=== PATIENT | male | born 1990 | race Two or more races ===

== ENCOUNTER → 2016-10-26 | Outpatient (CLI) | payer MEDICAID | END | disposition home or self-care (01) | LOC: CVU 13:05 | PROVIDERS: ATTEND Specialist | DX: I51.7 Cardiomegaly (principal); I27.0 Primary pulmonary hypertension | CPT/HCPCS: 93005; 93306 ==

== ENCOUNTER 2016-12-15 09:09 | Day surgery (SDC) | payer MEDICAID ==
[2016-12-14 15:01] LABS: HEMATOCRIT 52.5 % (39.2-51.8); HEMOGLOBIN 17.2 g/dL (13.7-18.0); WHITE BLOOD COUNT 10.9 x10^3/uL (3.4-10)
[2016-12-14 15:10] LABS: BLOOD UREA NITROGEN 13 mg/dL (7-18)
[~2016-12-15] VITALS: Ht 167.6 cm; Wt 86.4 kg
[~2016-12-15 09:09] MED LIST: BENA1TAB8 PO; ERGO500017 PO; NIFE30TA13 PO
[2016-12-15] MEDS ORDERED: MIDAZOLAM 1 MG/ML, 5ML ONE (10:22)
[2016-12-15] MEDS ORDERED: FENTANYL PF 100 MCG/2ML ONE (10:22)
[2016-12-15] MEDS ORDERED: METO25TA2 PO (11:41)
== END 2016-12-15 12:45 | disposition home or self-care (01) ==
LOC: CACL 09:09
PROVIDERS: ATTEND Internal Medicine Cardiovascular Disease
DX: R06.02 Shortness of breath (principal); I10 Essential (primary) hypertension; H15.9 Unspecified disorder of sclera; J44.9 Chronic obstructive pulmonary disease, unspecified
CPT/HCPCS: 36415; 71020; 80048; 83880; 85025; 85610; 85730; 93451; 99156; 99157; C1894; J2250; J3010

== ENCOUNTER 2017-12-28 08:12 | Inpatient (IN) | payer MEDICAID ==
[~2017-12-28] VITALS: Ht 167.6 cm; Wt 83.0 kg
[~2017-12-28 08:12] MED LIST changes: +METO25TA2 PO
[2017-12-28] MEDS ORDERED: ONDANSETRON ODT 4 MG ONE (08:55)
[2017-12-28] MEDS ORDERED: MAALOX/HYOSCYAMINE/LIDOCAINE 45 ML BTL ONE (08:56)
[2017-12-28] MEDS ORDERED: FAMOTIDINE 20 MG/2 ML ONE (08:56)
[2017-12-28] MEDS ORDERED: MORPHINE SULFATE 4 MG/ML, 1ML ONE (08:56)
[2017-12-28] MEDS ORDERED: ONDANSETRON ODT 4 MG PO PRN ×4 (09:00→20:30)
[2017-12-28] MEDS ORDERED: MORPHINE SULFATE 4 MG/ML, 1ML IVPush PRN (09:00)
[2017-12-28] MEDS ORDERED: MAALOX/HYOSCYAMINE/LIDOCAINE 45 ML BTL PO ONE (09:00)
[2017-12-28] MEDS ORDERED: FAMOTIDINE 20 MG/2 ML IVP ONE (09:00)
[2017-12-28 09:06] LABS: BASOPHILS # (AUTO) 0.11 x10^3/uL (0-0.1); BASOPHILS % (AUTO) 1 % (0-1); EOSINOPHILS # (AUTO) 0.06 x10^3/uL (0-0.4); EOSINOPHILS % (AUTO) 0 % (1-7); LYMPHOCYTES # (AUTO) 1.06 x10^3/uL (1-3.4); LYMPHOCYTES % (AUTO) 6 % (22-44); MD NO; MEAN CORPUSCULAR HGB CONC 33.2 g/dL (33.2-36.2); MEAN CORPUSCULAR VOLUME 75.3 fL (81-97); MEAN PLATELET VOLUME 6.9 fL (7.4-10.4); MONOCYTES # (AUTO) 0.61 x10^3/uL (0.2-0.8); MONOCYTES % (AUTO) 4 % (2-9); NEUTROPHILS # (AUTO) 15.32 x10^3/uL (1.8-6.8); NEUTROPHILS % (AUTO) 89 % (42-75); PLATELET COUNT 400 x10^3/uL (130-400); RED BLOOD COUNT 6.43 x10^6/uL (4.38-5.82); RED CELL DISTRIBUTION WIDTH 15.1 % (9.4-14.8)
[2017-12-28 09:15] LABS: ANION GAP 8 mmol/L (5-15); CALCIUM 9.7 mg/dL (8.5-10.1); CHLORIDE 100 mmol/L (98-107)
[2017-12-28 09:19] LABS: ALANINE AMINOTRANSFERASE 31 U/L (12-78); ALKALINE PHOSPHATASE 86 U/L (45-117); BILIRUBIN,TOTAL 0.5 mg/dL (0.2-1.0); CREATININE 0.81 mg/dL (0.7-1.3); TOTAL PROTEIN 9.1 g/dL (6.4-8.2)
[2017-12-28] MEDS ORDERED: OMNIPAQUE 350 MG/ML, 100ML BOTTLE ONE (11:39)
[2017-12-28 14:06] VITALS: BP 125/81
[2017-12-28 14:27] VITALS: BP 125/81
[2017-12-28] MEDS ORDERED: BUPIVACAINE/PF-EPI 0.5% 1:200K ONE (16:35)
[2017-12-28] MEDS ORDERED: NEOSPORIN OINT, 15GM ONE (16:35)
[2017-12-28] MEDS ORDERED: GLYCOPYRROLATE 0.2MG/1ML, 5ML ONE (17:49)
[2017-12-28] MEDS ORDERED: DEXAMETHASONE 4 MG/ML, 1ML ONE (17:49)
[2017-12-28] MEDS ORDERED: ROCURONIUM 10 MG/ML,10ML ONE (17:49)
[2017-12-28] MEDS ORDERED: NEOSTIGMINE 1 MG/ML, 10ML ONE (17:49)
[2017-12-28] MEDS ORDERED: PROPOFOL 10 MG/ML, 20ML ONE (17:49)
[2017-12-28] MEDS ORDERED: SUCCINYLCHOLINE 20 MG/ML, 10ML ONE (17:49)
[2017-12-28] MEDS ORDERED: KETOROLAC 30 MG/1 ML ONE (17:49)
[2017-12-28] MEDS ORDERED: CEFAZOLIN 1,000 MG ONE (17:49)
[2017-12-28] MEDS ORDERED: LABETALOL 5MG/ML, 20ML IVPush PRN (18:00)
[2017-12-28] MEDS ORDERED: morphine SULFATE 10 MG/ML, 1ML IVPush PRN (18:00)
[2017-12-28] MEDS ORDERED: hydrALAzine 20 MG/ML, 1ML IVPush PRN (18:00)
[2017-12-28] MEDS ORDERED: ONDANSETRON 2MG/ML, 2ML IVPush PRN (18:00)
[2017-12-28] MEDS ORDERED: ONDANSETRON ODT 8 MG PO PRN (18:30)
[2017-12-28] MEDS ORDERED: OXYcodone 5 MG/5 ML ORAL.SOL UDC PO PRN (18:30)
[2017-12-28] MEDS ORDERED: METOPROLOL 1 MG/ML, 5ML IV PRN (18:30)
[2017-12-28] MEDS ORDERED: PROMETHAZINE 12.5 MG SUPP PR PRN (18:30)
[2017-12-28] MEDS ORDERED: HYDROmorphone 1 MG/ML, 1ML IV PRN (18:30)
[2017-12-28] MEDS ORDERED: ALBUTEROL/IPRATROPIUM 2.5MG/0.5MG, 3 ML NPPB PRN (18:30)
[2017-12-28] MEDS ORDERED: MIDAZOLAM 1 MG/ML, 2ML IV PRN (18:30)
[2017-12-28] MEDS ORDERED: FENTANYL PF 100 MCG/2ML IV PRN (18:30)
[2017-12-28] MEDS ORDERED: hydrALAzine 20 MG/ML, 1ML IV PRN (18:30)
[2017-12-28] MEDS ORDERED: MEPERIDINE/PF 25MG/0.5ML IVPush PRN (18:30)
[2017-12-28] MEDS ORDERED: ACETAMINOPHEN 325 MG TABLET PO PRN (18:30)
[2017-12-28] MEDS ORDERED: SCOPOLAMINE PATCH, 1.5MG PATCH.TD72 TD PRN (18:30)
[2017-12-28 18:52] LABS: HEMOGLOBIN A1C 5.7 % (4.2-6.3)
[2017-12-28] MEDS ORDERED: HYDROmorphone 2 MG/ML, 1ML ONE (19:32)
[2017-12-28] MEDS ORDERED: OXYcodone 5 MG/5 ML ORAL.SOL UDC ONE (19:32)
[2017-12-28 20:15] VITALS: BP 143/90
[2017-12-28] MEDS ORDERED: ONDANSETRON 2MG/ML, 2ML IV PRN (20:30)
[2017-12-28] MEDS ORDERED: MORPHINE SULFATE 4 MG/ML, 1ML IV PRN (20:30)
[2017-12-28 21:22] LABS: TROPONIN I < 0.015 ng/mL (0.000-0.045)
[2017-12-28] MEDS: METOPROLOL SUCCINATE 25 MG TAB.ER.24H PO SCH (22:52)
[2017-12-28] MEDS: niFEDipine ER 30 MG TABLET.ER PO SCH (22:52)
[2017-12-29 00:37] VITALS: BP 105/66
[2017-12-29 01:58] VITALS: BP 107/69
[2017-12-29 04:50] LABS: MEAN CORPUSCULAR HGB CONC 32.9 g/dL (33.2-36.2); MEAN CORPUSCULAR VOLUME 75.9 fL (81-97); PLATELET COUNT 396 x10^3/uL (130-400); RED CELL DISTRIBUTION WIDTH 14.8 % (9.4-14.8)
[2017-12-29 05:00] LABS: ALANINE AMINOTRANSFERASE 28 U/L (12-78); ALBUMIN 3.2 g/dL (3.4-5.0); ANION GAP 10 mmol/L (5-15); CALCIUM 8.5 mg/dL (8.5-10.1); CHLORIDE 100 mmol/L (98-107); CHOLESTEROL, TOTAL 114 mg/dL (140-239); CREATININE 0.98 mg/dL (0.7-1.3); TRIGLYCERIDES 125 mg/dL (50-200); VLDL CHOLESTEROL 25 mg/dL (0-25)
[2017-12-29 05:10] LABS: ALKALINE PHOSPHATASE 77 U/L (45-117); BILIRUBIN,TOTAL 0.9 mg/dL (0.2-1.0); CHOL/HDL RATIO 3.8; HDL CHOL % 26 % (26-37); HDL CHOLESTEROL (DIRECT) 30 mg/dL (40-60); LDL CHOLESTEROL,CALCULATED 59 mg/dL (54-169); THYROID STIMULATING HORMONE 0.368 mIU/L (0.358-3.740); TOTAL PROTEIN 8.2 g/dL (6.4-8.2)
[2017-12-29 05:49] LABS: BASOPHILS # (AUTO) 0.07 x10^3/uL (0-0.1); BASOPHILS % (AUTO) 0 % (0-1); EOSINOPHILS % (AUTO) 0 % (1-7); LYMPHOCYTES # (AUTO) 0.94 x10^3/uL (1-3.4); LYMPHOCYTES % (AUTO) 5 % (22-44); MD SCAN; MONOCYTES # (AUTO) 1.34 x10^3/uL (0.2-0.8); MONOCYTES % (AUTO) 6 % (2-9); NEUTROPHILS # (AUTO) 18.87 x10^3/uL (1.8-6.8); NEUTROPHILS % (AUTO) 89 % (42-75)
[2017-12-29] MEDS: HYDROCHLOROTHIAZIDE HOMEMEDPO SCH (08:14)
[2017-12-29] MEDS: BENAZEPRIL HOMEMEDPO SCH (08:14)
[2017-12-29] MEDS: niFEDipine ER 30 MG TABLET.ER PO SCH ×2 (08:14→20:28)
[2017-12-29] MEDS: [UNRECOGNIZED DRUG - OTHER] HOMEMEDPO SCH (08:14)
[2017-12-29 08:21] VITALS: BP 104/67
[2017-12-29] MEDS: OXYcodone/APAP 5/325MG TABLET PO PRN (08:23)
[2017-12-29 12:25] VITALS: BP 100/65
[2017-12-29 19:23] VITALS: BP 105/68
[2017-12-29 20:25] VITALS: BP 121/76
[2017-12-29] MEDS: METOPROLOL SUCCINATE 25 MG TAB.ER.24H PO SCH (20:28)
[2017-12-30] VITALS (8 sets, daily range): BP systolic 95–127; BP diastolic 58–79
[2017-12-30 04:51] LABS: MEAN CORPUSCULAR HEMOGLOBIN 25.4 pg (27.5-34.5); MEAN CORPUSCULAR HGB CONC 32.9 g/dL (33.2-36.2); MEAN CORPUSCULAR VOLUME 77.2 fL (81-97); MEAN PLATELET VOLUME 7.3 fL (7.4-10.4); PLATELET COUNT 385 x10^3/uL (130-400); RED BLOOD COUNT 5.54 x10^6/uL (4.38-5.82); RED CELL DISTRIBUTION WIDTH 15.4 % (9.4-14.8)
[2017-12-30 05:05] LABS: CHLORIDE 103 mmol/L (98-107)
[2017-12-30 05:18] LABS: ANION GAP 9 mmol/L (5-15); CALCIUM 8.5 mg/dL (8.5-10.1); CREATININE 0.81 mg/dL (0.7-1.3)
[2017-12-30 05:41] LABS: BASOPHILS % (AUTO) 0 % (0-1); EOSINOPHILS # (AUTO) 0.12 x10^3/uL (0-0.4); EOSINOPHILS % (AUTO) 1 % (1-7); LYMPHOCYTES % (AUTO) 16 % (22-44); MONOCYTES # (AUTO) 1.87 x10^3/uL (0.2-0.8); MONOCYTES % (AUTO) 12 % (2-9); NEUTROPHILS # (AUTO) 11.54 x10^3/uL (1.8-6.8); NEUTROPHILS % (AUTO) 72 % (42-75)
[2017-12-30 05:42] LABS: BASOPHILS # (AUTO) 0.06 x10^3/uL (0-0.1); MD SCAN
[2017-12-30 05:55] LABS: MICROSCOPIC AUTO
[2017-12-30 05:56] LABS: CULTURE INDICATED? NO
[2017-12-30] MEDS: niFEDipine ER 30 MG TABLET.ER PO SCH ×2 (08:13→21:38)
[2017-12-30] MEDS: HYDROCHLOROTHIAZIDE HOMEMEDPO SCH (08:15)
[2017-12-30] MEDS: [UNRECOGNIZED DRUG - OTHER] HOMEMEDPO SCH (08:15)
[2017-12-30] MEDS: BENAZEPRIL HOMEMEDPO SCH (08:15)
[2017-12-30] MEDS ORDERED: SODIUM CHLORIDE 0.9% 1,000ML IVBOLUS ONE (14:00)
[2017-12-30] MEDS: OXYcodone/APAP 5/325MG TABLET PO PRN ×2 (16:22→21:41)
[2017-12-30] MEDS: METOPROLOL SUCCINATE 25 MG TAB.ER.24H PO SCH (19:57)
[2017-12-31 01:38] VITALS: BP 97/59
[2017-12-31 06:01] VITALS: BP 108/68
[2017-12-31] MEDS: METOPROLOL SUCCINATE 25 MG TAB.ER.24H PO SCH (06:02)
[2017-12-31 07:26] VITALS: BP 95/63
[2017-12-31] MEDS: niFEDipine ER 30 MG TABLET.ER PO SCH ×2 (08:28→20:04)
[2017-12-31] MEDS: BENAZEPRIL 5 MG TABLET PO SCH (08:28)
[2017-12-31 09:44] LABS: BASOPHILS # (AUTO) 0.08 x10^3/uL (0-0.1); BASOPHILS % (AUTO) 1 % (0-1); EOSINOPHILS # (AUTO) 0.22 x10^3/uL (0-0.4); EOSINOPHILS % (AUTO) 1 % (1-7); LYMPHOCYTES # (AUTO) 1.99 x10^3/uL (1-3.4); LYMPHOCYTES % (AUTO) 13 % (22-44); MD NO; MEAN CORPUSCULAR HEMOGLOBIN 25.1 pg (27.5-34.5); MEAN CORPUSCULAR HGB CONC 32.4 g/dL (33.2-36.2); MEAN CORPUSCULAR VOLUME 77.4 fL (81-97); MEAN PLATELET VOLUME 7.1 fL (7.4-10.4); MONOCYTES # (AUTO) 0.59 x10^3/uL (0.2-0.8); MONOCYTES % (AUTO) 4 % (2-9); NEUTROPHILS % (AUTO) 81 % (42-75); PLATELET COUNT 407 x10^3/uL (130-400); RED BLOOD COUNT 5.87 x10^6/uL (4.38-5.82); RED CELL DISTRIBUTION WIDTH 15.4 % (9.4-14.8)
[2017-12-31] MEDS: ACETAMINOPHEN 325 MG TABLET PO PRN ×2 (11:30→16:28)
[2017-12-31 14:32] VITALS: BP 111/73
[2017-12-31 21:06] VITALS: BP 116/79
[2018-01-01 02:20] VITALS: BP 110/72
[2018-01-01] MEDS: METOPROLOL SUCCINATE 25 MG TAB.ER.24H PO SCH (06:18)
[2018-01-01 07:27] VITALS: BP 105/72
[2018-01-01] MEDS: BENAZEPRIL 5 MG TABLET PO SCH (08:01)
[2018-01-01] MEDS: niFEDipine ER 30 MG TABLET.ER PO SCH (08:01)
[2018-01-01] MEDS ORDERED: METOPROLOL SUCCINATE 25 MG TAB.ER.24H PO ONE (08:30)
[2018-01-01 11:09] VITALS: BP 126/70
[2018-01-01] MEDS ORDERED: METO50TA4 PO (12:24)
[2018-01-01] MEDS ORDERED: BENA5TAB3 PO (12:24)
[2018-01-01 13:10] VITALS: BP 123/87
== END 2018-01-01 15:03 | disposition home or self-care (01) | DRG 711 ==
LOC: ED 09:15 → EDIP 12:31 → 3NW 13:18 → DCLOUNGE 01-01 14:50
PROVIDERS: ADMIT Internal Medicine; ATTEND Internal Medicine
PROC: 0VT90ZZ Resection of Right Testis, Open Approach (ICD-10-PCS; principal; 2017-12-28 17:30)
DX: C62.91 Malignant neoplasm of right testis, unspecified whether descended or undescended (principal); E87.1 Hypo-osmolality and hyponatremia; I10 Essential (primary) hypertension; K76.0 Fatty (change of) liver, not elsewhere classified; K80.20 Calculus of gallbladder without cholecystitis without obstruction; M34.9 Systemic sclerosis, unspecified; R91.1 Solitary pulmonary nodule; N44.8 Other noninflammatory disorders of the testis; F32.9 Major depressive disorder, single episode, unspecified; R33.9 Retention of urine, unspecified; R00.0 Tachycardia, unspecified; D72.829 Elevated white blood cell count, unspecified
CPT/HCPCS: 36415; 99285; J3490; S0028; 71260; 74177; 76700; 80053; 80061; 80069; 81001; 82105; 83036; 83605; 83615; 83690; 83735; 84443; 84484; 84702; 85025; 85379; 87040; 88309; 88341; 88342; 93005; 93306; 96374; G0378; J0690; J1100; J1170; J1885; J2704; J2710; Q0162; Q9967; G0461; J0330; J7030

== ENCOUNTER 2018-01-05 05:08 | Emergency (ER) | payer MEDICAID ==
[~2018-01-05] VITALS: Ht 167.6 cm; Wt 81.6 kg
[~2018-01-05 05:08] MED LIST changes: +BENA5TAB3 PO; +METO50TA4 PO
[2018-01-05] MEDS ORDERED: FAMOTIDINE 20 MG/2 ML IVP ONE (05:30)
[2018-01-05] MEDS ORDERED: SODIUM CHLORIDE 0.9% 1,000ML IVBOLUS ONE (05:30)
[2018-01-05] MEDS ORDERED: SODIUM CHLORIDE FLUSH 10ML SYR IVF ONE (05:30)
[2018-01-05] MEDS ORDERED: FAMOTIDINE 20 MG/2 ML ONE (05:31)
[2018-01-05] MEDS ORDERED: MORPHINE SULFATE 4 MG/ML, 1ML ONE ×2 (05:31→06:36)
[2018-01-05] MEDS: MORPHINE SULFATE 4 MG/ML, 1ML IVPush PRN ×2 (05:42→06:39)
[2018-01-05 05:50] LABS: BASOPHILS # (AUTO) 0.09 x10^3/uL (0-0.1); BASOPHILS % (AUTO) 1 % (0-1); EOSINOPHILS # (AUTO) 0.22 x10^3/uL (0-0.4); EOSINOPHILS % (AUTO) 1 % (1-7); LYMPHOCYTES # (AUTO) 2.32 x10^3/uL (1-3.4); LYMPHOCYTES % (AUTO) 14 % (22-44); MD NO; MEAN CORPUSCULAR HEMOGLOBIN 25.2 pg (27.5-34.5); MEAN CORPUSCULAR HGB CONC 32.8 g/dL (33.2-36.2); MEAN CORPUSCULAR VOLUME 76.8 fL (81-97); MEAN PLATELET VOLUME 6.5 fL (7.4-10.4); MONOCYTES # (AUTO) 1.34 x10^3/uL (0.2-0.8); MONOCYTES % (AUTO) 8 % (2-9); NEUTROPHILS # (AUTO) 12.95 x10^3/uL (1.8-6.8); NEUTROPHILS % (AUTO) 77 % (42-75); PLATELET COUNT 562 x10^3/uL (130-400); RED BLOOD COUNT 5.63 x10^6/uL (4.38-5.82); RED CELL DISTRIBUTION WIDTH 15.2 % (9.4-14.8)
[2018-01-05 05:59] LABS: ALANINE AMINOTRANSFERASE 36 U/L (12-78); ALBUMIN 3.3 g/dL (3.4-5.0); ANION GAP 13 mmol/L (5-15); CALCIUM 9.4 mg/dL (8.5-10.1); CHLORIDE 102 mmol/L (98-107); CREATININE 0.85 mg/dL (0.7-1.3)
[2018-01-05 06:01] LABS: ALKALINE PHOSPHATASE 105 U/L (45-117); BILIRUBIN,TOTAL 0.5 mg/dL (0.2-1.0); TOTAL PROTEIN 8.8 g/dL (6.4-8.2)
[2018-01-05 08:50] VITALS: BP 121/76
== END 2018-01-05 08:54 | disposition home or self-care (01) ==
LOC: ED 06:17
DX: R10.84 Generalized abdominal pain (principal); Z88.5 Allergy status to narcotic agent
CPT/HCPCS: 36415; 76700; 80053; 83690; 85025; 96361; 96374; 96375; 96376; 99285; J7030; S0028

== ENCOUNTER 2018-01-16 16:32 | Inpatient (IN) | payer MEDICAID ==
[~2018-01-16] VITALS: Ht 167.6 cm; Wt 79.6 kg
[2018-01-16 18:07] LABS: BASOPHILS # (AUTO) 0.04 x10^3/uL (0-0.1); BASOPHILS % (AUTO) 0 % (0-1); EOSINOPHILS # (AUTO) 0.21 x10^3/uL (0-0.4); EOSINOPHILS % (AUTO) 2 % (1-7); LYMPHOCYTES # (AUTO) 2.41 x10^3/uL (1-3.4); LYMPHOCYTES % (AUTO) 17 % (22-44); MD NO; MEAN CORPUSCULAR HEMOGLOBIN 25.2 pg (27.5-34.5); MEAN CORPUSCULAR HGB CONC 33.2 g/dL (33.2-36.2); MEAN CORPUSCULAR VOLUME 75.8 fL (81-97); MEAN PLATELET VOLUME 7.1 fL (7.4-10.4); MONOCYTES # (AUTO) 1.11 x10^3/uL (0.2-0.8); MONOCYTES % (AUTO) 8 % (2-9); NEUTROPHILS # (AUTO) 10.64 x10^3/uL (1.8-6.8); NEUTROPHILS % (AUTO) 74 % (42-75); PLATELET COUNT 459 x10^3/uL (130-400); RED BLOOD COUNT 5.84 x10^6/uL (4.38-5.82); RED CELL DISTRIBUTION WIDTH 14.7 % (9.4-14.8)
[2018-01-16 18:20] LABS: ALANINE AMINOTRANSFERASE 40 U/L (12-78); ALBUMIN 3.6 g/dL (3.4-5.0); ANION GAP 6 mmol/L (5-15); CALCIUM 9.2 mg/dL (8.5-10.1); CHLORIDE 104 mmol/L (98-107)
[2018-01-16 18:23] LABS: ALKALINE PHOSPHATASE 103 U/L (45-117); BILIRUBIN,TOTAL 0.4 mg/dL (0.2-1.0); TOTAL PROTEIN 8.7 g/dL (6.4-8.2)
[2018-01-16] MEDS ORDERED: HYDR-3241 PO (18:29)
[2018-01-16] MEDS ORDERED: DICYCLOMINE 10 MG CAPSULE ONE (20:08)
[2018-01-16] MEDS ORDERED: ONDANSETRON ODT 4 MG ONE (20:08)
[2018-01-16 20:27] LABS: MICROSCOPIC AUTO
[2018-01-16 20:32] LABS: CULTURE INDICATED? NO
[2018-01-16] MEDS ORDERED: CEFOTETAN PMX 2GM/50ML 50 ML IV ONE (22:00)
[2018-01-16 23:52] VITALS: BP 116/76
[2018-01-17] VITALS (7 sets, daily range): BP systolic 89–149; BP diastolic 57–82
[2018-01-17] MEDS ORDERED: hydrALAzine 20 MG/ML, 1ML IVPush PRN
[2018-01-17] MEDS ORDERED: POLYETHYLENE GLYCOL 17 GM PACKET PO PRN
[2018-01-17] MEDS ORDERED: BISACODYL 10 MG SUPP PR PRN
[2018-01-17] MEDS ORDERED: DOCUSATE 100 MG CAPSULE PO PRN
[2018-01-17] MEDS ORDERED: ONDANSETRON ODT 4 MG PO PRN
[2018-01-17] MEDS ORDERED: ACETAMINOPHEN 325 MG TABLET PO PRN
[2018-01-17] MEDS ORDERED: HYDROcodone/APAP 5/325 TABLET PO PRN
[2018-01-17] MEDS ORDERED: LABETALOL 5MG/ML, 20ML IVPush PRN
[2018-01-17] MEDS ORDERED: PROMETHAZINE 25 MG/ML, 1ML IM PRN
[2018-01-17] MEDS ORDERED: ERGOCALCIFEROL 50,000 UNIT CAPSULE PO SCH
[2018-01-17] MEDS: SODIUM CHLORIDE 0.9% 1,000 ML IV SCH ×2 (00:11→10:17)
[2018-01-17] MEDS: PIPERACILLIN/TAZO/PMX 3.375GM 50 ML IV SCH ×4 (00:15→17:57)
[2018-01-17] MEDS: niFEDipine ER 30 MG TABLET.ER PO SCH ×3 (00:35→21:00)
[2018-01-17 01:01] LABS: FREE T4 (FREE THYROXINE) 1.55 ng/dL (0.76-1.46); THYROID STIMULATING HORMONE 4.7 mIU/L (0.358-3.740)
[2018-01-17 01:25] LABS: HEMOGLOBIN A1C 5.9 % (4.2-6.3)
[2018-01-17 04:57] LABS: BASOPHILS # (AUTO) 0.09 x10^3/uL (0-0.1); BASOPHILS % (AUTO) 1 % (0-1); EOSINOPHILS # (AUTO) 0.18 x10^3/uL (0-0.4); EOSINOPHILS % (AUTO) 2 % (1-7); LYMPHOCYTES # (AUTO) 2.29 x10^3/uL (1-3.4); LYMPHOCYTES % (AUTO) 18 % (22-44); MD NO; MEAN CORPUSCULAR HEMOGLOBIN 24.7 pg (27.5-34.5); MEAN CORPUSCULAR HGB CONC 32.8 g/dL (33.2-36.2); MEAN CORPUSCULAR VOLUME 75.2 fL (81-97); MEAN PLATELET VOLUME 7.4 fL (7.4-10.4); MONOCYTES # (AUTO) 1.42 x10^3/uL (0.2-0.8); MONOCYTES % (AUTO) 11 % (2-9); NEUTROPHILS # (AUTO) 8.66 x10^3/uL (1.8-6.8); NEUTROPHILS % (AUTO) 69 % (42-75); PLATELET COUNT 399 x10^3/uL (130-400); RED BLOOD COUNT 5.52 x10^6/uL (4.38-5.82); RED CELL DISTRIBUTION WIDTH 14.6 % (9.4-14.8)
[2018-01-17 05:11] LABS: CHLORIDE 104 mmol/L (98-107)
[2018-01-17 05:23] LABS: ALANINE AMINOTRANSFERASE 34 U/L (12-78); ALBUMIN 3.4 g/dL (3.4-5.0); ALKALINE PHOSPHATASE 84 U/L (45-117); ANION GAP 8 mmol/L (5-15); BILIRUBIN,TOTAL 0.6 mg/dL (0.2-1.0); CALCIUM 8.5 mg/dL (8.5-10.1); CHOL/HDL RATIO 3.8; CHOLESTEROL, TOTAL 123 mg/dL (140-239); CREATININE 0.96 mg/dL (0.7-1.3); HDL CHOL % 26 % (26-37); HDL CHOLESTEROL (DIRECT) 32 mg/dL (40-60); LDL CHOLESTEROL,CALCULATED 43 mg/dL (54-169); LDL/HDL RATIO 1.3 (0.5-3.0); TOTAL PROTEIN 7.9 g/dL (6.4-8.2); TRIGLYCERIDES 241 mg/dL (50-200); VLDL CHOLESTEROL 48 mg/dL (0-25)
[2018-01-17] MEDS: BENAZEPRIL 5 MG TABLET PO SCH (09:07)
[2018-01-17] MEDS: METOPROLOL SUCCINATE 50 MG TAB.ER.24H PO SCH (09:07)
[2018-01-17] MEDS ORDERED: BUPIVACAINE/PF-EPI 0.5% 1:200K ONE (14:06)
[2018-01-17] MEDS ORDERED: NEOSPORIN OINT, 15GM ONE (14:07)
[2018-01-17] MEDS ORDERED: FENTANYL PF 100 MCG/2ML ONE ×2 (14:12→16:00)
[2018-01-17] MEDS ORDERED: MIDAZOLAM 1 MG/ML, 2ML ONE (14:12)
[2018-01-17] MEDS ORDERED: BACITRACIN 50,000 UNIT ONE (14:52)
[2018-01-17] MEDS ORDERED: PROPOFOL 10 MG/ML, 20ML ONE (14:58)
[2018-01-17] MEDS ORDERED: OXYcodone 5 MG/5 ML ORAL.SOL UDC ONE (16:00)
[2018-01-17] MEDS: FENTANYL PF 100 MCG/2ML IV PRN ×2 (16:05→16:10)
[2018-01-17] MEDS ORDERED: MEPERIDINE/PF 50 MG/ML ONE (16:08)
[2018-01-17] MEDS ORDERED: LABETALOL 5MG/ML, 20ML IV PRN (16:30)
[2018-01-17] MEDS ORDERED: PROMETHAZINE 25 MG/ML, 1ML IV PRN (16:30)
[2018-01-17] MEDS ORDERED: KETOROLAC 30 MG/1 ML IV PRN (16:30)
[2018-01-17] MEDS ORDERED: MEPERIDINE/PF 25MG/0.5ML IVPush PRN (16:30)
[2018-01-17] MEDS ORDERED: OXYcodone 5 MG/5 ML ORAL.SOL UDC PO PRN (16:30)
[2018-01-17] MEDS ORDERED: hydrALAzine 20 MG/ML, 1ML IV PRN (16:30)
[2018-01-17] MEDS ORDERED: HYDROmorphone 2 MG/ML, 1ML IV PRN (16:30)
[2018-01-17] MEDS ORDERED: METOCLOPRAMIDE 5 MG/ML, 2ML IV PRN (16:30)
[2018-01-17] MEDS ORDERED: ALBUTEROL SULFATE 2.5 MG/3 ML NPPB PRN (16:30)
[2018-01-17] MEDS ORDERED: ONDANSETRON 2MG/ML, 2ML IVPush PRN ×2 (16:30)
[2018-01-17] MEDS: morphine SULFATE 10 MG/ML, 1ML IVPush PRN (17:34)
[2018-01-18] MEDS: PIPERACILLIN/TAZO/PMX 3.375GM 50 ML IV SCH ×5 (00:03→23:43)
[2018-01-18 00:34] VITALS: BP 93/58
[2018-01-18 03:25] VITALS: BP 97/64
[2018-01-18 04:37] LABS: BASOPHILS # (AUTO) 0.09 x10^3/uL (0-0.1); BASOPHILS % (AUTO) 1 % (0-1); EOSINOPHILS # (AUTO) 0.27 x10^3/uL (0-0.4); EOSINOPHILS % (AUTO) 3 % (1-7); LYMPHOCYTES # (AUTO) 2.44 x10^3/uL (1-3.4); LYMPHOCYTES % (AUTO) 25 % (22-44); MD NO; MEAN CORPUSCULAR HEMOGLOBIN 24.5 pg (27.5-34.5); MEAN CORPUSCULAR HGB CONC 32.5 g/dL (33.2-36.2); MEAN CORPUSCULAR VOLUME 75.5 fL (81-97); MEAN PLATELET VOLUME 7.2 fL (7.4-10.4); MONOCYTES % (AUTO) 11 % (2-9); NEUTROPHILS # (AUTO) 5.99 x10^3/uL (1.8-6.8); NEUTROPHILS % (AUTO) 61 % (42-75); PLATELET COUNT 384 x10^3/uL (130-400); RED BLOOD COUNT 5.19 x10^6/uL (4.38-5.82); RED CELL DISTRIBUTION WIDTH 15.3 % (9.4-14.8)
[2018-01-18 04:47] LABS: ALBUMIN 3.2 g/dL (3.4-5.0); ANION GAP 6 mmol/L (5-15); CHLORIDE 105 mmol/L (98-107); CREATININE 0.77 mg/dL (0.7-1.3)
[2018-01-18 06:35] VITALS: BP 93/59
[2018-01-18] MEDS: METOPROLOL SUCCINATE 50 MG TAB.ER.24H PO SCH (07:45)
[2018-01-18] MEDS: BENAZEPRIL 5 MG TABLET PO SCH (08:43)
[2018-01-18] MEDS: niFEDipine ER 30 MG TABLET.ER PO SCH ×2 (08:43→21:00)
[2018-01-18] MEDS: morphine SULFATE 10 MG/ML, 1ML IVPush PRN ×2 (12:03→23:43)
[2018-01-18 13:12] VITALS: BP 103/66
[2018-01-18 18:41] VITALS: BP 113/69
[2018-01-19 04:15] VITALS: BP 109/71
[2018-01-19 05:27] LABS: ALBUMIN 3.2 g/dL (3.4-5.0); ANION GAP 4 mmol/L (5-15); CALCIUM 8.7 mg/dL (8.5-10.1); CHLORIDE 106 mmol/L (98-107); CREATININE 0.86 mg/dL (0.7-1.3)
[2018-01-19] MEDS: PIPERACILLIN/TAZO/PMX 3.375GM 50 ML IV SCH ×3 (05:55→17:58)
[2018-01-19] MEDS: morphine SULFATE 10 MG/ML, 1ML IVPush PRN ×2 (06:06→12:32)
[2018-01-19 07:22] VITALS: BP 123/84
[2018-01-19 10:06] VITALS: BP 120/80
[2018-01-19] MEDS: BENAZEPRIL 5 MG TABLET PO SCH (10:08)
[2018-01-19] MEDS: niFEDipine ER 30 MG TABLET.ER PO SCH ×2 (10:08→22:02)
[2018-01-19] MEDS: PANTOPRAZOLE 20MG TABLET PO SCH ×2 (10:09→21:51)
[2018-01-19] MEDS: METOPROLOL SUCCINATE 50 MG TAB.ER.24H PO SCH (10:09)
[2018-01-19 10:30] LABS: ALANINE AMINOTRANSFERASE 42 U/L (12-78); ALBUMIN 3.2 g/dL (3.4-5.0)
[2018-01-19 10:32] LABS: ALKALINE PHOSPHATASE 104 U/L (45-117); BILIRUBIN,TOTAL 0.3 mg/dL (0.2-1.0)
[2018-01-19 10:38] LABS: BILIRUBIN, DIRECT < 0.1 mg/dL (0.1-0.2); BILIRUBIN,INDIRECT 0.2 mg/dL (0.0-2.0)
[2018-01-19 13:45] VITALS: BP 95/54
[2018-01-19 18:46] VITALS: BP 106/70
[2018-01-20] MEDS: PIPERACILLIN/TAZO/PMX 3.375GM 50 ML IV SCH ×5 (00:08→23:26)
[2018-01-20] MEDS: morphine SULFATE 10 MG/ML, 1ML IVPush PRN ×2 (00:09→15:35)
[2018-01-20 00:37] VITALS: BP 96/62
[2018-01-20 06:39] VITALS: BP 97/63
[2018-01-20] MEDS: METOPROLOL SUCCINATE 50 MG TAB.ER.24H PO SCH (09:00)
[2018-01-20] MEDS: niFEDipine ER 30 MG TABLET.ER PO SCH (09:00)
[2018-01-20] MEDS: BENAZEPRIL 5 MG TABLET PO SCH (09:00)
[2018-01-20 09:51] VITALS: BP 99/66
[2018-01-20 09:53] VITALS: BP 97/64
[2018-01-20] MEDS: PANTOPRAZOLE 20MG TABLET PO SCH ×2 (09:57→20:25)
[2018-01-20 12:15] VITALS: BP 104/71
[2018-01-20 19:12] VITALS: BP 106/70
[2018-01-21 04:15] VITALS: BP 102/66
[2018-01-21] MEDS: morphine SULFATE 10 MG/ML, 1ML IVPush PRN (04:20)
[2018-01-21 05:33] LABS: ALBUMIN 3.5 g/dL (3.4-5.0); ANION GAP 5 mmol/L (5-15); CALCIUM 9.3 mg/dL (8.5-10.1); CHLORIDE 104 mmol/L (98-107); CREATININE 0.82 mg/dL (0.7-1.3)
[2018-01-21] MEDS: PIPERACILLIN/TAZO/PMX 3.375GM 50 ML IV SCH ×2 (06:03→12:00)
[2018-01-21 06:47] VITALS: BP 96/66
[2018-01-21] MEDS: PANTOPRAZOLE 20MG TABLET PO SCH (08:56)
[2018-01-21] MEDS ORDERED: BENAZEPRIL 5 MG TABLET PO SCH (09:00)
[2018-01-21] MEDS ORDERED: niFEDipine ER 30 MG TABLET.ER PO SCH (09:00)
[2018-01-21] MEDS ORDERED: METOPROLOL SUCCINATE 25 MG TAB.ER.24H PO SCH (09:00)
[2018-01-21] MEDS ORDERED: LACT1CAP43 PO (11:20)
[2018-01-21] MEDS ORDERED: BENA5TAB3 PO (11:20)
[2018-01-21] MEDS ORDERED: NIFE10CA49 PO (11:20)
[2018-01-21] MEDS ORDERED: AMOX1TAB64 PO (11:20)
[2018-01-21] MEDS ORDERED: METO25TA91 PO (11:20)
[2018-01-21 12:10] VITALS: BP 110/73
== END 2018-01-21 13:19 | disposition home or self-care (01) | DRG 863 ==
LOC: ED 21:33 → EDIP 22:29 → UNDOADMIN 23:00 → EDIP 23:00 → 3NW 23:47 → EDIP 23:47
PROVIDERS: ADMIT Internal Medicine; ATTEND Internal Medicine
PROC: 0V9500Z Drainage of Scrotum with Drainage Device, Open Approach (ICD-10-PCS; principal; 2018-01-17 14:30)
DX: T81.41XA Infection following a procedure, superficial incisional surgical site, initial encounter (principal); I10 Essential (primary) hypertension; K76.0 Fatty (change of) liver, not elsewhere classified; M34.9 Systemic sclerosis, unspecified; R79.89 Other specified abnormal findings of blood chemistry; N49.2 Inflammatory disorders of scrotum; E55.9 Vitamin D deficiency, unspecified; Y83.8 Other surgical procedures as the cause of abnormal reaction of the patient, or of later complication, without mention of misadventure at the time of the procedure; N50.89 Other specified disorders of the male genital organs; Z80.6 Family history of leukemia; Z80.8 Family history of malignant neoplasm of other organs or systems; Z85.47 Personal history of malignant neoplasm of testis; Z90.79 Acquired absence of other genital organ(s); Y92.89 Other specified places as the place of occurrence of the external cause; Z92.21 Personal history of antineoplastic chemotherapy
CPT/HCPCS: 36415; 74018; 76870; 80048; 80053; 80061; 80076; 81001; 82040; 83036; 83605; 83690; 83735; 84439; 84443; 85025; 87015; 87040; 87070; 87075; 87102; 87116; 87205; 87206; 96365; G0378; J2175; J2250; J2543; J2704; J3010; J2270; J7030; S0074

== ENCOUNTER 2018-06-29 13:00 | Outpatient (CLI) | payer MEDICAID ==
[~2018-06-29 13:00] MED LIST changes: +AMOX1TAB64 PO; +HYDR-3241 PO; +LACT1CAP43 PO; +METO25TA91 PO; +NIFE10CA49 PO
[2018-06-29] MEDS ORDERED: NIFE30TA13 PO (13:31)
[2018-06-29] MEDS ORDERED: BENA5TAB3 PO (13:31)
[2018-06-29 14:06] LABS: MICROSCOPIC NOT IND
[2018-06-29 14:15] LABS: BASOPHILS # (AUTO) 0.04 x10^3/uL (0-0.1); BASOPHILS % (AUTO) 0 % (0-1); EOSINOPHILS # (AUTO) 0.14 x10^3/uL (0-0.4); EOSINOPHILS % (AUTO) 2 % (1-7); LYMPHOCYTES # (AUTO) 2.27 x10^3/uL (1-3.4); LYMPHOCYTES % (AUTO) 27 % (22-44); MD NO; MEAN CORPUSCULAR HEMOGLOBIN 27.6 pg (27.5-34.5); MEAN CORPUSCULAR HGB CONC 33.6 g/dL (33.2-36.2); MEAN CORPUSCULAR VOLUME 82.3 fL (81-97); MEAN PLATELET VOLUME 7.3 fL (7.4-10.4); MONOCYTES # (AUTO) 1.06 x10^3/uL (0.2-0.8); MONOCYTES % (AUTO) 13 % (2-9); NEUTROPHILS # (AUTO) 4.84 x10^3/uL (1.8-6.8); NEUTROPHILS % (AUTO) 58 % (42-75); PLATELET COUNT 325 x10^3/uL (130-400); RED BLOOD COUNT 4.77 x10^6/uL (4.38-5.82); RED CELL DISTRIBUTION WIDTH 15.3 % (9.4-14.8)
[2018-06-29 14:16] LABS: INTERNATIONAL NORMALIZED RATIO 0.97 (0.93-1.1); PROTHROMBIN TIME 10.2 Seconds (9.6-11.5)
[2018-06-29 14:18] LABS: ALBUMIN 4.4 g/dL (3.4-5.0); ANION GAP 7 mmol/L (5-15); CALCIUM 9.8 mg/dL (8.5-10.1); CHLORIDE 104 mmol/L (98-107)
[2018-06-29 14:23] LABS: ALANINE AMINOTRANSFERASE 60 U/L (12-78); ALKALINE PHOSPHATASE 77 U/L (45-117); BILIRUBIN,TOTAL 0.5 mg/dL (0.2-1.0); CREATININE 0.71 mg/dL (0.7-1.3); TOTAL PROTEIN 8.7 g/dL (6.4-8.2)
== END 2018-06-29 23:59 | disposition home or self-care (01) ==
LOC: STAR 13:00
PROVIDERS: ATTEND Urology
DX: Z01.818 Encounter for other preprocedural examination (principal); C62.90 Malignant neoplasm of unspecified testis, unspecified whether descended or undescended; I10 Essential (primary) hypertension; Z79.899 Other long term (current) drug therapy
CPT/HCPCS: 36415; 80053; 81003; 85025; 85610; 85730; 87086; 93005

== ENCOUNTER 2018-07-03 05:37 | Inpatient (IN) | payer MEDICAID ==
[2018-06-29 13:55] VITALS: BP 115/80
[~2018-07-03] VITALS: Ht 170.2 cm; Wt 91.9 kg
[2018-07-03] MEDS ORDERED: LACTATED RINGERS 1,000 ML IV SCH (06:23)
[2018-07-03] MEDS ORDERED: INDIGO CARMINE 0.8%, 5ML ONE (06:34)
[2018-07-03] MEDS ORDERED: FENTANYL PF 250 MCG/5ML ONE (06:45)
[2018-07-03] MEDS ORDERED: MIDAZOLAM 1 MG/ML, 2ML ONE (06:45)
[2018-07-03] MEDS ORDERED: PROPOFOL 10 MG/ML, 20ML ONE (07:31)
[2018-07-03] MEDS ORDERED: LIDOCAINE-MPF 2% ,5ML ONE (07:31)
[2018-07-03] MEDS ORDERED: CEFAZOLIN 1,000 MG ONE (07:31)
[2018-07-03] MEDS ORDERED: ROCURONIUM 10 MG/ML,10ML ONE (07:31)
[2018-07-03] MEDS ORDERED: DEXAMETHASONE 4 MG/ML, 1ML ONE (07:31)
[2018-07-03] MEDS ORDERED: FENTANYL PF 100 MCG/2ML ONE ×2 (08:25→10:46)
[2018-07-03] MEDS ORDERED: EPHEDRINE 50 MG/ML, 1ML IVPush PRN (09:00)
[2018-07-03] MEDS ORDERED: LORazepam 2 MG/ML, 1ML IVPush PRN (09:00)
[2018-07-03] MEDS ORDERED: KETOROLAC 30 MG/1 ML IVPush PRN (09:00)
[2018-07-03] MEDS ORDERED: ACETAMINOPHEN 325 MG TABLET PO PRN (09:00)
[2018-07-03] MEDS ORDERED: ALBUTEROL SULFATE 2.5 MG/3 ML NPPB PRN (09:00)
[2018-07-03] MEDS ORDERED: NALBUPHINE 10 MG/ML, 1ML IVPush PRN (09:00)
[2018-07-03] MEDS ORDERED: NALOXONE 0.4 MG/ML, 1ML IVPush PRN (09:00)
[2018-07-03] MEDS ORDERED: DO NOT GIVE XX SCH ×2 (09:00)
[2018-07-03] MEDS ORDERED: EPHEDRINE 50 MG/ML, 1ML IM PRN (09:00)
[2018-07-03] MEDS ORDERED: FENTANYL PF 100 MCG/2ML IV PRN (09:00)
[2018-07-03] MEDS ORDERED: MEPERIDINE/PF 25MG/0.5ML IVPush PRN ×2 (09:00)
[2018-07-03] MEDS ORDERED: METOCLOPRAMIDE 5 MG/ML, 2ML IVPush PRN (09:00)
[2018-07-03] MEDS ORDERED: PROMETHAZINE 25 MG/ML, 1ML IV PRN (09:00)
[2018-07-03] MEDS ORDERED: LABETALOL 5MG/ML, 20ML IV PRN (09:00)
[2018-07-03] MEDS ORDERED: hydrALAzine 20 MG/ML, 1ML IV PRN (09:00)
[2018-07-03] MEDS ORDERED: OXYcodone 5 MG/5 ML ORAL.SOL UDC PO PRN (09:00)
[2018-07-03] MEDS: HYDROmorphone/PF 5 MG, BUPIVACAINE/PF 0.5%, 30ML 62.5 ML in SODIUM CHLORIDE 0.9% 182.5 ML EPIDCONT SCH (11:00)
[2018-07-03] MEDS ORDERED: HYDROmorphone 1 MG/ML, 1ML AMP ONE (11:30)
[2018-07-03] MEDS: HYDROmorphone 2 MG/ML, 1ML IVPush PRN ×2 (11:32→11:47)
[2018-07-03 12:05] LABS: MEAN CORPUSCULAR HEMOGLOBIN 26.6 pg (27.5-34.5); MEAN CORPUSCULAR HGB CONC 32.2 g/dL (33.2-36.2); MEAN CORPUSCULAR VOLUME 82.5 fL (81-97); MEAN PLATELET VOLUME 6.7 fL (7.4-10.4); PLATELET COUNT 265 x10^3/uL (130-400); RED BLOOD COUNT 4.46 x10^6/uL (4.38-5.82); RED CELL DISTRIBUTION WIDTH 15.1 % (9.4-14.8)
[2018-07-03 12:18] LABS: ANION GAP 8 mmol/L (5-15); CALCIUM 8.3 mg/dL (8.5-10.1); CHLORIDE 107 mmol/L (98-107); CREATININE 0.71 mg/dL (0.7-1.3)
[2018-07-03] MEDS ORDERED: ONDANSETRON 2MG/ML, 2ML IV PRN (14:30)
[2018-07-03] MEDS: SODIUM CHLORIDE FLUSH 10ML SYR IVF SCH ×2 (15:09→20:40)
[2018-07-03] MEDS: CEFAZOLIN PMX 1GM/50ML 50 ML IVPB SCH ×2 (15:32→23:56)
[2018-07-03] MEDS: D5%-0.45NACL+KCL 20MEQ 1,000 ML IV SCH (15:32)
[2018-07-03] MEDS ORDERED: ZOSYN PER PHARMACY MC SCH (17:30)
[2018-07-03] MEDS: PIPERACILLIN/TAZO/PMX 3.375GM 50 ML IV SCH (18:17)
[2018-07-03] MEDS ORDERED: VANCOMYCIN PER PHARMACY MC PRN (19:30)
[2018-07-03] MEDS ORDERED: NOREPINEPHRINE 4 MG in SODIUM CHLORIDE 0.9% 246 ML IV PRN (19:30)
[2018-07-03] MEDS ORDERED: VANCOMYCIN PMX 1GM/200ML 200 ML IV ONE (19:30)
[2018-07-03] MEDS ORDERED: PHARMACOKINETIC CONSULTATION MC ONE (20:00)
[2018-07-03] MEDS ORDERED: PHARMACOKINETIC MONITORING MC PRN (20:00)
[2018-07-03] MEDS: VANCOMYCIN 1,700 MG in SODIUM CHLORIDE 0.9% 250 ML IV SCH (20:37)
[2018-07-03 20:42] LABS: MICROSCOPIC AUTO
[2018-07-03 20:46] LABS: CULTURE INDICATED? NO
[2018-07-03] MEDS ORDERED: niFEDipine ER 30 MG TABLET.ER PO SCH (21:00)
[2018-07-04] MEDS: PIPERACILLIN/TAZO/PMX 3.375GM 50 ML IV SCH ×4 (01:09→19:55)
[2018-07-04] MEDS ORDERED: SODIUM CHLORIDE 0.9%, 250ML IVBOLUS ONE (02:30)
[2018-07-04 04:00] VITALS: BP 92/53
[2018-07-04 04:30] LABS: ANION GAP 5 mmol/L (5-15); CHLORIDE 108 mmol/L (98-107); CREATININE 0.82 mg/dL (0.7-1.3)
[2018-07-04] MEDS: D5%-0.45NACL+KCL 20MEQ 1,000 ML IV SCH ×2 (07:27→20:41)
[2018-07-04] MEDS ORDERED: BENAZEPRIL 5 MG TABLET PO SCH (09:00)
[2018-07-04] MEDS: VANCOMYCIN 1,700 MG in SODIUM CHLORIDE 0.9% 250 ML IV SCH ×2 (09:18→22:04)
[2018-07-04] MEDS: SODIUM CHLORIDE FLUSH 10ML SYR IVF SCH ×2 (09:19→22:04)
[2018-07-04] MEDS: HYDROmorphone/PF 5 MG, BUPIVACAINE/PF 0.5%, 30ML 62.5 ML in SODIUM CHLORIDE 0.9% 182.5 ML EPIDCONT SCH (12:53)
[2018-07-04] MEDS: ENOXAPARIN 40 MG/0.4 ML SQ SCH (14:56)
[2018-07-04 17:12] VITALS: BP 110/78
[2018-07-04 19:05] VITALS: BP 120/84
[2018-07-04 20:23] VITALS: BP 117/75
[2018-07-05] MEDS: PIPERACILLIN/TAZO/PMX 3.375GM 50 ML IV SCH ×4 (01:09→19:48)
[2018-07-05 02:14] VITALS: BP 114/75
[2018-07-05 06:06] LABS: BASOPHILS # (AUTO) 0.02 x10^3/uL (0-0.1); BASOPHILS % (AUTO) 0 % (0-1); EOSINOPHILS # (AUTO) 0.02 x10^3/uL (0-0.4); EOSINOPHILS % (AUTO) 0 % (1-7); LYMPHOCYTES # (AUTO) 1.06 x10^3/uL (1-3.4); LYMPHOCYTES % (AUTO) 13 % (22-44); MD NO; MEAN CORPUSCULAR HEMOGLOBIN 27.3 pg (27.5-34.5); MEAN CORPUSCULAR VOLUME 82.7 fL (81-97); MEAN PLATELET VOLUME 6.9 fL (7.4-10.4); MONOCYTES # (AUTO) 1.04 x10^3/uL (0.2-0.8); MONOCYTES % (AUTO) 13 % (2-9); NEUTROPHILS # (AUTO) 5.79 x10^3/uL (1.8-6.8); NEUTROPHILS % (AUTO) 73 % (42-75); PLATELET COUNT 211 x10^3/uL (130-400); RED CELL DISTRIBUTION WIDTH 14.8 % (9.4-14.8)
[2018-07-05 06:11] LABS: ALANINE AMINOTRANSFERASE 33 U/L (12-78); ALBUMIN 2.9 g/dL (3.4-5.0); ANION GAP 4 mmol/L (5-15); CALCIUM 8.5 mg/dL (8.5-10.1); CHLORIDE 110 mmol/L (98-107)
[2018-07-05 06:14] LABS: ALKALINE PHOSPHATASE 51 U/L (45-117); BILIRUBIN,TOTAL 0.5 mg/dL (0.2-1.0); CREATININE 1.76 mg/dL (0.7-1.3); TOTAL PROTEIN 6.4 g/dL (6.4-8.2)
[2018-07-05 08:25] VITALS: BP 107/73
[2018-07-05] MEDS: VANCOMYCIN 1,700 MG in SODIUM CHLORIDE 0.9% 250 ML IV SCH (09:22)
[2018-07-05] MEDS: D5%-0.45NACL+KCL 20MEQ 1,000 ML IV SCH (09:22)
[2018-07-05] MEDS: SODIUM CHLORIDE FLUSH 10ML SYR IVF SCH ×2 (09:23→21:00)
[2018-07-05] MEDS: SODIUM CHLORIDE 0.9% 1,000 ML IV SCH ×3 (11:17→23:57)
[2018-07-05 13:25] VITALS: BP 106/73
[2018-07-05] MEDS: HYDROmorphone/PF 5 MG, BUPIVACAINE/PF 0.5%, 30ML 62.5 ML in SODIUM CHLORIDE 0.9% 182.5 ML EPIDCONT SCH (14:28)
[2018-07-05] MEDS: ENOXAPARIN 40 MG/0.4 ML SQ SCH (15:45)
[2018-07-05 18:30] VITALS: BP 123/81
[2018-07-06 00:08] VITALS: BP 113/77
[2018-07-06] MEDS: PIPERACILLIN/TAZO/PMX 3.375GM 50 ML IV SCH ×2 (01:43→08:02)
[2018-07-06 05:12] LABS: BASOPHILS # (AUTO) 0.03 x10^3/uL (0-0.1); BASOPHILS % (AUTO) 0 % (0-1); EOSINOPHILS # (AUTO) 0.16 x10^3/uL (0-0.4); EOSINOPHILS % (AUTO) 2 % (1-7); LYMPHOCYTES % (AUTO) 23 % (22-44); MD NO; MEAN CORPUSCULAR HEMOGLOBIN 27.4 pg (27.5-34.5); MEAN CORPUSCULAR HGB CONC 33.2 g/dL (33.2-36.2); MEAN CORPUSCULAR VOLUME 82.5 fL (81-97); MEAN PLATELET VOLUME 6.8 fL (7.4-10.4); MONOCYTES # (AUTO) 0.82 x10^3/uL (0.2-0.8); MONOCYTES % (AUTO) 13 % (2-9); NEUTROPHILS # (AUTO) 3.97 x10^3/uL (1.8-6.8); NEUTROPHILS % (AUTO) 61 % (42-75); PLATELET COUNT 208 x10^3/uL (130-400); RED BLOOD COUNT 3.42 x10^6/uL (4.38-5.82); RED CELL DISTRIBUTION WIDTH 14.7 % (9.4-14.8)
[2018-07-06 05:19] LABS: CHLORIDE 113 mmol/L (98-107)
[2018-07-06 05:26] LABS: ALANINE AMINOTRANSFERASE 26 U/L (12-78); ALBUMIN 2.7 g/dL (3.4-5.0); ALKALINE PHOSPHATASE 49 U/L (45-117); ANION GAP 6 mmol/L (5-15); BILIRUBIN,TOTAL 0.5 mg/dL (0.2-1.0); CALCIUM 8.6 mg/dL (8.5-10.1); CREATININE 2.09 mg/dL (0.7-1.3); TOTAL PROTEIN 6.3 g/dL (6.4-8.2)
[2018-07-06] MEDS: SODIUM CHLORIDE 0.9% 1,000 ML IV SCH ×3 (06:44→19:50)
[2018-07-06 07:35] VITALS: BP 109/77
[2018-07-06] MEDS: SODIUM CHLORIDE FLUSH 10ML SYR IVF SCH ×2 (08:02→20:42)
[2018-07-06 13:25] VITALS: BP 122/86
[2018-07-06] MEDS: ENOXAPARIN 40 MG/0.4 ML SQ SCH (15:08)
[2018-07-06] MEDS: LACTATED RINGERS 1,000 ML IV SCH (16:08)
[2018-07-06 16:57] LABS: CHLORIDE,URINE RANDOM 112 mmol/L; POTASSIUM,URINE RANDOM 5 mmol/L; SODIUM,URINE RANDOM 105 mmol/L
[2018-07-06 17:16] LABS: OSMOLALITY,URINE 252 mOsm/kg (500-850)
[2018-07-06 19:17] VITALS: BP 120/83
[2018-07-06] MEDS: HYDROmorphone/PF 5 MG, BUPIVACAINE/PF 0.5%, 30ML 62.5 ML in SODIUM CHLORIDE 0.9% 182.5 ML EPIDCONT SCH (20:33)
[2018-07-07] MEDS: LACTATED RINGERS 1,000 ML IV SCH ×2 (01:13→18:09)
[2018-07-07 01:29] VITALS: BP 119/80
[2018-07-07] MEDS: SODIUM CHLORIDE 0.9% 1,000 ML IV SCH (02:30)
[2018-07-07 05:46] LABS: BASOPHILS # (AUTO) 0.03 x10^3/uL (0-0.1); BASOPHILS % (AUTO) 1 % (0-1); EOSINOPHILS % (AUTO) 4 % (1-7); LYMPHOCYTES # (AUTO) 1.47 x10^3/uL (1-3.4); LYMPHOCYTES % (AUTO) 26 % (22-44); MD NO; MEAN CORPUSCULAR HEMOGLOBIN 26.6 pg (27.5-34.5); MEAN CORPUSCULAR HGB CONC 32.3 g/dL (33.2-36.2); MEAN CORPUSCULAR VOLUME 82.2 fL (81-97); MEAN PLATELET VOLUME 6.7 fL (7.4-10.4); MONOCYTES # (AUTO) 0.64 x10^3/uL (0.2-0.8); MONOCYTES % (AUTO) 11 % (2-9); NEUTROPHILS # (AUTO) 3.39 x10^3/uL (1.8-6.8); NEUTROPHILS % (AUTO) 59 % (42-75); PLATELET COUNT 267 x10^3/uL (130-400); RED BLOOD COUNT 3.53 x10^6/uL (4.38-5.82); RED CELL DISTRIBUTION WIDTH 14.8 % (9.4-14.8)
[2018-07-07 05:56] LABS: ANION GAP 5 mmol/L (5-15); CALCIUM 8.7 mg/dL (8.5-10.1); CHLORIDE 108 mmol/L (98-107); CREATININE 1.84 mg/dL (0.7-1.3)
[2018-07-07 08:53] VITALS: BP 116/79
[2018-07-07] MEDS: SODIUM CHLORIDE FLUSH 10ML SYR IVF SCH ×2 (09:00→21:00)
[2018-07-07 12:18] VITALS: BP 123/90
[2018-07-07] MEDS: ENOXAPARIN 40 MG/0.4 ML SQ SCH (15:00)
[2018-07-07 21:23] VITALS: BP 139/83
[2018-07-08] MEDS: LACTATED RINGERS 1,000 ML IV SCH ×3 (01:28→21:04)
[2018-07-08 01:36] VITALS: BP 133/84
[2018-07-08 05:27] LABS: BASOPHILS # (AUTO) 0.02 x10^3/uL (0-0.1); BASOPHILS % (AUTO) 0 % (0-1); EOSINOPHILS # (AUTO) 0.09 x10^3/uL (0-0.4); EOSINOPHILS % (AUTO) 1 % (1-7); LYMPHOCYTES # (AUTO) 1.13 x10^3/uL (1-3.4); LYMPHOCYTES % (AUTO) 14 % (22-44); MD NO; MEAN CORPUSCULAR HGB CONC 33.1 g/dL (33.2-36.2); MEAN CORPUSCULAR VOLUME 81.6 fL (81-97); MEAN PLATELET VOLUME 6.9 fL (7.4-10.4); MONOCYTES # (AUTO) 0.64 x10^3/uL (0.2-0.8); MONOCYTES % (AUTO) 8 % (2-9); NEUTROPHILS # (AUTO) 6.48 x10^3/uL (1.8-6.8); NEUTROPHILS % (AUTO) 78 % (42-75); PLATELET COUNT 320 x10^3/uL (130-400); RED BLOOD COUNT 4.08 x10^6/uL (4.38-5.82); RED CELL DISTRIBUTION WIDTH 14.3 % (9.4-14.8)
[2018-07-08 05:31] LABS: ANION GAP 5 mmol/L (5-15); CALCIUM 9.4 mg/dL (8.5-10.1); CHLORIDE 104 mmol/L (98-107)
[2018-07-08 05:33] LABS: CREATININE 1.94 mg/dL (0.7-1.3)
[2018-07-08 07:00] VITALS: BP 144/91
[2018-07-08] MEDS: SODIUM CHLORIDE FLUSH 10ML SYR IVF SCH ×2 (10:11→21:00)
[2018-07-08] MEDS ORDERED: HYDROcodone/APAP 5/325 TABLET PO PRN (12:00)
[2018-07-08] MEDS ORDERED: HYDROcodone/APAP 10/325 MG TABLET PO PRN (12:00)
[2018-07-08 13:46] VITALS: BP 121/77
[2018-07-08] MEDS: ENOXAPARIN 40 MG/0.4 ML SQ SCH (15:09)
[2018-07-08 19:31] VITALS: BP 144/78
[2018-07-09 03:00] VITALS: BP 122/79
[2018-07-09 05:17] LABS: BASOPHILS # (AUTO) 0.04 x10^3/uL (0-0.1); BASOPHILS % (AUTO) 0 % (0-1); EOSINOPHILS # (AUTO) 0.14 x10^3/uL (0-0.4); EOSINOPHILS % (AUTO) 2 % (1-7); LYMPHOCYTES # (AUTO) 1.52 x10^3/uL (1-3.4); LYMPHOCYTES % (AUTO) 16 % (22-44); MD NO; MEAN CORPUSCULAR HEMOGLOBIN 26.2 pg (27.5-34.5); MEAN CORPUSCULAR HGB CONC 32.4 g/dL (33.2-36.2); MEAN CORPUSCULAR VOLUME 80.9 fL (81-97); MEAN PLATELET VOLUME 6.8 fL (7.4-10.4); MONOCYTES # (AUTO) 1.03 x10^3/uL (0.2-0.8); MONOCYTES % (AUTO) 11 % (2-9); NEUTROPHILS # (AUTO) 6.73 x10^3/uL (1.8-6.8); NEUTROPHILS % (AUTO) 71 % (42-75); PLATELET COUNT 297 x10^3/uL (130-400); RED BLOOD COUNT 3.93 x10^6/uL (4.38-5.82); RED CELL DISTRIBUTION WIDTH 14.8 % (9.4-14.8)
[2018-07-09 05:27] LABS: CHLORIDE 100 mmol/L (98-107)
[2018-07-09 05:37] LABS: ANION GAP 7 mmol/L (5-15); CALCIUM 8.8 mg/dL (8.5-10.1); CREATININE 1.56 mg/dL (0.7-1.3)
[2018-07-09] MEDS: LACTATED RINGERS 1,000 ML IV SCH (07:46)
[2018-07-09] MEDS: SODIUM CHLORIDE FLUSH 10ML SYR IVF SCH ×2 (07:47→21:00)
[2018-07-09 08:06] VITALS: BP 114/76
[2018-07-09] MEDS ORDERED: POTASSIUM CHLORIDE 20 MEQ TAB.ER.PRT PO ONE (09:00)
[2018-07-09] MEDS: DOCUSATE 100 MG CAPSULE PO SCH ×2 (10:07→21:10)
[2018-07-09] MEDS ORDERED: HYDR-3240 PO (10:18)
[2018-07-09] MEDS ORDERED: DOCU-131 PO (10:18)
[2018-07-09 12:23] VITALS: BP 114/73
[2018-07-09] MEDS: ENOXAPARIN 40 MG/0.4 ML SQ SCH (15:36)
[2018-07-09 18:32] VITALS: BP 101/67
[2018-07-10 02:03] VITALS: BP 108/74
[2018-07-10 05:39] LABS: BASOPHILS # (AUTO) 0.04 x10^3/uL (0-0.1); BASOPHILS % (AUTO) 1 % (0-1); EOSINOPHILS # (AUTO) 0.33 x10^3/uL (0-0.4); EOSINOPHILS % (AUTO) 4 % (1-7); LYMPHOCYTES # (AUTO) 2.08 x10^3/uL (1-3.4); LYMPHOCYTES % (AUTO) 22 % (22-44); MD NO; MEAN CORPUSCULAR HEMOGLOBIN 27.1 pg (27.5-34.5); MEAN CORPUSCULAR HGB CONC 33.2 g/dL (33.2-36.2); MEAN CORPUSCULAR VOLUME 81.6 fL (81-97); MEAN PLATELET VOLUME 7.2 fL (7.4-10.4); MONOCYTES % (AUTO) 13 % (2-9); NEUTROPHILS # (AUTO) 5.93 x10^3/uL (1.8-6.8); NEUTROPHILS % (AUTO) 62 % (42-75); PLATELET COUNT 341 x10^3/uL (130-400); RED BLOOD COUNT 3.99 x10^6/uL (4.38-5.82)
[2018-07-10 05:57] LABS: ANION GAP 10 mmol/L (5-15); CALCIUM 8.6 mg/dL (8.5-10.1); CHLORIDE 104 mmol/L (98-107)
[2018-07-10 06:00] LABS: CREATININE 1.57 mg/dL (0.7-1.3)
[2018-07-10 07:51] VITALS: BP 100/71
[2018-07-10] MEDS ORDERED: POTASSIUM CHLORIDE 40 MEQ in SODIUM CHLORIDE 0.9% 500 ML IV ONE (08:00)
[2018-07-10] MEDS: DOCUSATE 100 MG CAPSULE PO SCH ×2 (08:05→21:12)
[2018-07-10] MEDS: SODIUM CHLORIDE FLUSH 10ML SYR IVF SCH ×2 (08:05→21:12)
[2018-07-10 13:27] VITALS: BP 103/69
[2018-07-10] MEDS: ENOXAPARIN 40 MG/0.4 ML SQ SCH (15:49)
[2018-07-10 16:20] LABS: MICROSCOPIC NOT IND
[2018-07-10 16:26] LABS: CULTURE INDICATED? NO
[2018-07-10 20:18] VITALS: BP 119/75
[2018-07-10] MEDS: niFEDipine ER 30 MG TABLET.ER PO SCH (21:12)
[2018-07-11 02:04] VITALS: BP 103/66
[2018-07-11 05:54] LABS: BASOPHILS # (AUTO) 0.07 x10^3/uL (0-0.1); BASOPHILS % (AUTO) 1 % (0-1); EOSINOPHILS % (AUTO) 3 % (1-7); LYMPHOCYTES # (AUTO) 2.21 x10^3/uL (1-3.4); LYMPHOCYTES % (AUTO) 24 % (22-44); MD NO; MEAN CORPUSCULAR HEMOGLOBIN 26.1 pg (27.5-34.5); MEAN CORPUSCULAR HGB CONC 32.1 g/dL (33.2-36.2); MEAN CORPUSCULAR VOLUME 81.3 fL (81-97); MONOCYTES # (AUTO) 1.02 x10^3/uL (0.2-0.8); MONOCYTES % (AUTO) 11 % (2-9); NEUTROPHILS # (AUTO) 5.72 x10^3/uL (1.8-6.8); NEUTROPHILS % (AUTO) 61 % (42-75); PLATELET COUNT 390 x10^3/uL (130-400); RED BLOOD COUNT 3.97 x10^6/uL (4.38-5.82); RED CELL DISTRIBUTION WIDTH 14.4 % (9.4-14.8)
[2018-07-11 06:03] LABS: ANION GAP 8 mmol/L (5-15); CALCIUM 8.9 mg/dL (8.5-10.1); CHLORIDE 106 mmol/L (98-107); CREATININE 1.74 mg/dL (0.7-1.3)
[2018-07-11 07:37] VITALS: BP 95/62
[2018-07-11] MEDS: DOCUSATE 100 MG CAPSULE PO SCH (09:37)
[2018-07-11] MEDS: niFEDipine ER 30 MG TABLET.ER PO SCH (09:37)
[2018-07-11] MEDS: SODIUM CHLORIDE FLUSH 10ML SYR IVF SCH (09:37)
[2018-07-11 14:03] VITALS: BP 91/60
== END 2018-07-11 14:33 | disposition home or self-care (01) | DRG 824 ==
LOC: ORIP 05:37 → 4NOR 14:01 → CCU 15:18 → 4NOR 07-04 17:00
PROVIDERS: ADMIT Urology; ATTEND Urology
PROC: 0T9B70Z Drainage of Bladder with Drainage Device, Via Natural or Artificial Opening (ICD-10-PCS; 2018-07-03)
PROC: 07BD0ZX Excision of Aortic Lymphatic, Open Approach, Diagnostic (ICD-10-PCS; principal; 2018-07-03 07:30)
DX: C77.2 Secondary and unspecified malignant neoplasm of intra-abdominal lymph nodes (principal); N17.9 Acute kidney failure, unspecified; R65.10 Systemic inflammatory response syndrome (SIRS) of non-infectious origin without acute organ dysfunction; D63.8 Anemia in other chronic diseases classified elsewhere; D72.829 Elevated white blood cell count, unspecified; G62.9 Polyneuropathy, unspecified; I10 Essential (primary) hypertension; I95.9 Hypotension, unspecified; K76.0 Fatty (change of) liver, not elsewhere classified; R91.1 Solitary pulmonary nodule; J45.909 Unspecified asthma, uncomplicated; K80.20 Calculus of gallbladder without cholecystitis without obstruction; M34.9 Systemic sclerosis, unspecified; T45.1X5A Adverse effect of antineoplastic and immunosuppressive drugs, initial encounter; Z85.47 Personal history of malignant neoplasm of testis
CPT/HCPCS: 36415; 71045; 76770; 80048; 80053; 80202; 81001; 81003; 82436; 83735; 83935; 84100; 84133; 84300; 85014; 85018; 85025; 85027; 86850; 86900; 86923; 87040; 87081; 87205; 88305; G0378; J0690; J1100; J1170; J1650; J1885; J2250; J2405; J2543; J2704; J3010; J3370; J3480; J3490; C1760; J7030; J7040; J7050; J7120

== ENCOUNTER 2018-10-10 12:50 | Outpatient (CLI) | payer MEDICAID | END 2018-10-10 23:59 | disposition home or self-care (01) | LOC: CARD 12:50 | PROVIDERS: ATTEND Specialist | DX: R06.02 Shortness of breath (principal) | CPT/HCPCS: 94060; 94726; 94729 ==

== ENCOUNTER 2020-02-28 16:15 | Emergency (ER) | payer MEDICAID ==
[~2020-02-28] VITALS: Ht 170.2 cm; Wt 95.8 kg
[~2020-02-28 16:15] MED LIST changes: +DOCU-131 PO; +HYDR-3240 PO
[2020-02-28 17:21] VITALS: BP 128/83
--- NOTE | 2020-02-28 17:57 | NUR ---
PATIENT NOT IN ROOM, WILL LOOK FOR PATIENT.
--- NOTE | 2020-02-28 18:05 | NUR ---
PATIENT FOUND TO BE IN ULTRASOUND.
--- NOTE | 2020-02-28 18:37 | NUR ---
LET MOM BACK AND SENT URINE ON PATIENT
[2020-02-28 18:54] LABS: BASOPHILS % (AUTO) 1 % (0-1); EOSINOPHILS % (AUTO) 1 % (1-7); LYMPHOCYTES % (AUTO) 20 % (22-44); MEAN CORPUSCULAR HEMOGLOBIN 24.7 pg (27.5-34.5); MEAN CORPUSCULAR HGB CONC 32.6 g/dL (33.2-36.2); MEAN PLATELET VOLUME 7.2 fL (7.4-10.4); MONOCYTES % (AUTO) 8 % (2-9); NEUTROPHILS % (AUTO) 70 % (42-75); PLATELET COUNT 351 x10^3/uL (130-400); RED BLOOD COUNT 5.54 x10^6/uL (4.38-5.82); RED CELL DISTRIBUTION WIDTH 15.2 % (9.4-14.8)
[2020-02-28 18:54] LABS: MICROSCOPIC AUTO
[2020-02-28 18:57] LABS: MD NO
--- NOTE | 2020-02-28 18:58 | NUR ---
report from JU [email or web address]
[2020-02-28 18:59] LABS: ALANINE AMINOTRANSFERASE 61 U/L (12-78); ANION GAP 7 mmol/L (5-15); CALCIUM 9.6 mg/dL (8.5-10.1); CHLORIDE 104 mmol/L (98-107); CREATININE 0.79 mg/dL (0.7-1.3)
[2020-02-28 19:03] LABS: ALKALINE PHOSPHATASE 104 U/L (45-117); BILIRUBIN,TOTAL 0.5 mg/dL (0.2-1.0); TOTAL PROTEIN 8.8 g/dL (6.4-8.2)
--- NOTE | 2020-02-28 19:23 | NUR ---
PT FOR RECHECK BY ERP
== END 2020-02-28 19:44 | disposition home or self-care (01) ==
LOC: ED 17:30
DX: N50.812 Left testicular pain (principal); M79.89 Other specified soft tissue disorders; I10 Essential (primary) hypertension; Z85.47 Personal history of malignant neoplasm of testis
CPT/HCPCS: 36415; 76870; 80053; 81001; 85025; 99284

== ENCOUNTER → 2020-04-29 | Outpatient (CLI) | payer MEDICAID ==
[~2020-04-29] MED LIST changes: +HYDR-1067 PO; -HYDR-3240 PO
== END | disposition home or self-care (01) ==
LOC: CVU 07:33
PROVIDERS: ATTEND Specialist
DX: M34.81 Systemic sclerosis with lung involvement (principal); R06.02 Shortness of breath; I27.20 Pulmonary hypertension, unspecified; I10 Essential (primary) hypertension
CPT/HCPCS: 93306; 93356

== ENCOUNTER → 2020-09-14 | Outpatient (CLI) | payer MEDICAID ==
[~2020-09-14] MED LIST changes: -HYDR-1067 PO; +HYDR-2214 PO
== END | disposition home or self-care (01) ==
LOC: CVU 14:33
PROVIDERS: ATTEND Internal Medicine Cardiovascular Disease
DX: I11.9 Hypertensive heart disease without heart failure (principal); R06.02 Shortness of breath; R00.0 Tachycardia, unspecified
CPT/HCPCS: 93306